=== PATIENT | male | born 1980 | race Caucasian/White ===

== ENCOUNTER → 2017-07-01 | Outpatient (CLI) | payer OTHER ==
[~2017-07-01] MED LIST: CRESTOR20 MG PO; TRICOR145 MG PO
== END | disposition home or self-care (01) ==
LOC: AMB 08:00
PROC: 0HB6XZZ Excision of Back Skin, External Approach (ICD-10-PCS; principal; 2017-07-01)
DX: L72.8 Other follicular cysts of the skin and subcutaneous tissue (principal)